=== PATIENT | female | born 1965 | race Caucasian/White ===

== ENCOUNTER 2019-05-10 22:20 | Inpatient (IN) | payer OTHER ==
[2019-05-10] MEDS ORDERED: LORazepam 2 MG/ML SDV IVPUSH ONE (22:41)
[2019-05-10] MEDS ORDERED: Sodium Chloride 0.9% 1,000 ML IV SCH (22:45)
--- NOTE | 2019-05-11 00:10 | EDM.PDOC ---
ED HPI GENERAL MEDICAL PROBLEM - General Chief Complaint: General Stated Complaint: SHAKING, HEAD ACHE, KIDNEY ACHE Time Seen by Provider: 05/10/19 22:30 Source of Information: Reports: Patient, Family History Limitations: Reports: No Limitations - History of Present Illness INITIAL COMMENTS - FREE TEXT/NARRATIVE: This is a 54yo F here for shaking and not feeling well. She has not been feeling well all day. [place]. She does note that she was dehydrated the first day and today she was out in the hot weather for over 12 hours as well. She states she had been drinking coconut water and some gatorade and water. She has shakiness of the arms and body that she cannot control very well. She denies other issues and denies fever or chills. She denies chest pain or shortness of breath. No palpitations or headache. She states she did feel lightheaded after the first day. Onset: Gradual Duration: Day(s): Location: Reports: Generalized ED ROS GENERAL - Review of Systems Review Of Systems: ROS reveals no pertinent complaints other than HPI. ED EXAM, GENERAL - Physical Exam Exam: See Below Exam Limited By: No Limitations General Appearance: Alert, WD/WN, No Apparent Distress Eye Exam: Bilateral Eye: EOMI, PERRL Ears: Normal External Exam Nose: Normal Inspection Throat/Mouth: Normal Inspection Head: Atraumatic, Normocephalic Neck: Normal Inspection Respiratory/Chest: No Respiratory Distress, Lungs Clear, Normal Breath Sounds Cardiovascular: Normal Peripheral Pulses, Regular Rate, Rhythm Peripheral Pulses: 2+: Dorsalis Pedis (L), Dorsalis Pedis (R) GI/Abdominal: Normal Bowel Sounds Back Exam: Normal Inspection Extremities: Normal Inspection Neurological: Alert, Oriented, CN II-XII Intact, Normal Reflexes, Other ( shakiness of the arms and body) Psychiatric: Normal Affect, Normal Mood Skin Exam: Warm, Dry, Intact Course - Orders/Labs/Meds Orders: Active Orders 24 hr Category Date Time Status Patient Status [ADT] Routine ADT 05/11/19 00:01 Ordered EKG Documentation Completion [RC] ASDIRECTED Care 05/10/19 22:40 Active Vital Signs [RC] QSHIFT Care 05/11/19 00:01 Ordered Regular Diet [DIET] Diet 05/11/19 Breakfast Ordered CBC WITH AUTO DIFF [HEME] Routine Lab 05/11/19 10:00 Ordered COMPREHENSIVE METABOLIC PN,CMP [CHEM] Routine Lab 05/11/19 10:00 Ordered CREATINE KINASE,CK [CHEM] Routine Lab 05/11/19 10:00 Ordered PH,VENOUS [BG] Routine Lab 05/11/19 10:00 Ordered Sodium Chloride 0.9% with KCl 20 mEq @ 100 mL/Hr (1000 Med 05/11/19 00:00 Ordered mL) NS + KCl 20mEq/L [Normal Saline with 20 mEq KCl] 1,000 ml IV ASDIRECTED Resuscitation Status Routine Resus Stat 05/11/19 00:01 Ordered Medication Orders Potassium Chloride/Sodium Chloride (Normal Saline With 20 Meq Kcl) 1,000 mls @ 100 mls/hr IV ASDIRECTED RIVAS Labs: Laboratory Tests 05/10/19 05/10/19 05/10/19 Range/Units 22:34 22:34 22:36 WBC 5.6 (4.0-11.0) K/uL RBC 4.10 (3.80-5.80) M/uL Hgb 12.7 (11.5-16.5) g/dL Hct 36.1 L (37.0-47.0) % MCV 88 (76-96) fL MCH 31.0 (27.0-32.0) pg MCHC 35.2 H (31.0-35.0) g/dL RDW 11.5 (11.0-16.0) % Plt Count 364 (150-500) K/uL MPV 8.6 (6.0-10.0) fL Neut % (Auto) 42.6 L (45.0-70.0) % Lymph % (Auto) 44.9 H (20.0-40.0) % Door % (Auto) 10.0 (3.0-10.0) % Eos % (Auto) 2.1 (1.0-5.0) % Baso % (Auto) 0.4 (0.0-0.5) % Neut # (Auto) 2.39 (2.00-7.50) K/uL Lymph # (Auto) 2.52 (1.50-4.00) K/uL Door # (Auto) 0.56 (0.20-0.80) K/uL Eos # (Auto) 0.12 (0.04-0.40) K/uL Baso # (Auto) 0.02 (0.02-0.10) K/uL PT (9.0-11.5) sec INR (1.0-3.5) VBG pH (7.31-7.41) Sodium 124 L (136-145) mmol/L Potassium 3.4 L (3.5-5.1) mmol/L Chloride 86 L* (98-107) mmol/L Carbon Dioxide 23.3 (21.0-32.0) mmol/L Anion Gap 18.1 H (5.0-15.0) mmol/L BUN 11 (8-26) mg/dL Creatinine 0.78 (0.55-1.02) mg/dL Est Cr Clr Drug Dosing TNP Estimated GFR (MDRD) > 60 (>60) MLS/MIN BUN/Creatinine Ratio 14.1 (6-25) Glucose 130 H (74-100) mg/dL Calcium 9.4 (8.5-10.1) mg/dL AST 27 (15-37) U/L ALT 28 (12-78) U/L Creatine Kinase (21-232) U/L 05/10/19 05/10/19 05/10/19 Range/Units 22:37 22:37 22:42 WBC (4.0-11.0) K/uL RBC (3.80-5.80) M/uL Hgb (11.5-16.5) g/dL Hct (37.0-47.0) % MCV (76-96) fL MCH (27.0-32.0) pg MCHC (31.0-35.0) g/dL RDW (11.0-16.0) % Plt Count (150-500) K/uL MPV (6.0-10.0) fL Neut % (Auto) (45.0-70.0) % Lymph % (Auto) (20.0-40.0) % Door % (Auto) (3.0-10.0) % Eos % (Auto) (1.0-5.0) % Baso % (Auto) (0.0-0.5) % Neut # (Auto) (2.00-7.50) K/uL Lymph # (Auto) (1.50-4.00) K/uL Door # (Auto) (0.20-0.80) K/uL Eos # (Auto) (0.04-0.40) K/uL Baso # (Auto) (0.02-0.10) K/uL PT 9.5 (9.0-11.5) sec INR 1.0 (1.0-3.5) VBG pH 7.62 H* (7.31-7.41) Sodium (136-145) mmol/L Potassium (3.5-5.1) mmol/L Chloride (98-107) mmol/L Carbon Dioxide (21.0-32.0) mmol/L Anion Gap (5.0-15.0) mmol/L BUN (8-26) mg/dL Creatinine (0.55-1.02) mg/dL Est Cr Clr Drug Dosing Estimated GFR (MDRD) (>60) MLS/MIN BUN/Creatinine Ratio (6-25) Glucose (74-100) mg/dL Calcium (8.5-10.1) mg/dL AST (15-37) U/L ALT (12-78) U/L Creatine Kinase 236 H (21-232) U/L Meds: Medications Generic Name Dose Route Start Last Admin Trade Name Freq PRN Reason Stop Dose Admin Potassium Chloride/Sodium Chloride 1,000 mls @ 100 mls/hr 05/11/19 00:00 Normal Saline With 20 Meq Kcl IV ASDIRECTED RIVAS Discontinued Medications Generic Name Dose Route Start Last Admin Trade Name Freq PRN Reason Stop Dose Admin Sodium Chloride 1,000 mls @ 999 mls/hr 05/10/19 22:45 05/10/19 22:45 Normal Saline IV 05/11/19 00:00 999 mls/hr ASDIRECTED RIVAS Administration Lorazepam 1 mg 05/10/19 22:41 05/10/19 23:07 Ativan IVPUSH 05/10/19 22:42 1 mg ONETIME ONE Administration Departure - Departure Time of Disposition: 00:15 Disposition: Admitted As Inpatient 68 Condition: Good Clinical Impression: Acute hyponatremia, Hypokalemia, Hypochloremic alkalosis, Occasional tremors, Elevated creatine kinase, Dehydration - Discharge Information - Problem List & Annotations (1) Acute hyponatremia SNOMED Code(s): 1346079 Code(s): E87.1 - HYPO-OSMOLALITY AND HYPONATREMIA Status: Acute (2) Dehydration SNOMED Code(s): 58363534 Code(s): E86.0 - DEHYDRATION Status: Acute (3) Elevated creatine kinase Status: Acute (4) Hypochloremic alkalosis SNOMED Code(s): 74384234 Code(s): E87.3 - ALKALOSIS Status: Acute (5) Hypokalemia SNOMED Code(s): 56917129 Code(s): E87.6 - HYPOKALEMIA Status: Acute (6) Occasional tremors SNOMED Code(s): 16376801 Code(s): R25.1 - TREMOR, UNSPECIFIED Status: Acute - Problem List Review Problem List Initiated/Reviewed/Updated: Yes - My Orders Last 24 Hours: My Active Orders 05/10/19 22:40 EKG Documentation Completion [RC] ASDIRECTED 05/11/19 00:00 Sodium Chloride 0.9% with KCl 20 mEq @ 100 mL/Hr (1000 mL) NS + KCl 20mEq/L [ Normal Saline with 20 mEq KCl] 1,000 ml IV ASDIRECTED 05/11/19 00:01 Patient Status [ADT] Routine Vital Signs [RC] QSHIFT Resuscitation Status Routine 05/11/19 10:00 CBC WITH AUTO DIFF [HEME] Routine COMPREHENSIVE METABOLIC PN,CMP [CHEM] Routine CREATINE KINASE,CK [CHEM] Routine PH,VENOUS [BG] Routine 05/11/19 Breakfast Regular Diet [DIET] - Assessment/Plan Last 24 Hours: My Active Orders 05/10/19 22:40 EKG Documentation Completion [RC] ASDIRECTED 05/11/19 00:00 Sodium Chloride 0.9% with KCl 20 mEq @ 100 mL/Hr (1000 mL) NS + KCl 20mEq/L [ Normal Saline with 20 mEq KCl] 1,000 ml IV ASDIRECTED 05/11/19 00:01 Patient Status [ADT] Routine Vital Signs [RC] QSHIFT Resuscitation Status Routine 05/11/19 10:00 CBC WITH AUTO DIFF [HEME] Routine COMPREHENSIVE METABOLIC PN,CMP [CHEM] Routine CREATINE KINASE,CK [CHEM] Routine PH,VENOUS [BG] Routine 05/11/19 Breakfast Regular Diet [DIET] Plan: Patient to be admitted for management of her hyponatremia, dehydration and possible heat stroke like symptoms. Patient counseled on treatment and labs. AM labs ordered.
[2019-05-11] MEDS: NS + KCl 20mEq/L 1,000 ML IV SCH ×2 (00:15→09:22)
--- NOTE | 2019-05-11 10:49 | PCM.DCSUM1 ---
Discharge Summary - Discharge Data Discharge Date: 05/11/19 Discharge Disposition: Home, Self-Care 01 Condition: Good - Discharge Diagnosis/Problem(s) (1) Acute hyponatremia SNOMED Code(s): 6767778 ICD Code: E87.1 - HYPO-OSMOLALITY AND HYPONATREMIA Status: Acute Priority : High Current Visit: Yes (2) Dehydration SNOMED Code(s): 66787206 ICD Code: E86.0 - DEHYDRATION Status: Acute Priority: High Current Visit: Yes (3) Elevated creatine kinase Status: Acute Current Visit: Yes (4) Hypochloremic alkalosis SNOMED Code(s): 12905850 ICD Code: E87.3 - ALKALOSIS Status: Acute Priority: High Current Visit : Yes (5) Hypokalemia SNOMED Code(s): 90880686 ICD Code: E87.6 - HYPOKALEMIA Status: Acute Priority: Low Current Visit : Yes (6) Occasional tremors SNOMED Code(s): 34997390 ICD Code: R25.1 - TREMOR, UNSPECIFIED Status: Acute Priority: High Current Visit: Yes - Patient Instructions Diet: Usual Diet as Tolerated Activity: As Tolerated Driving: May Drive Today - Discharge Plan Patient Handouts: Rehydration, Adult Forms: ED Department Discharge - Discharge Summary/Plan Comment DC Time >30 min.: No Discharge Summary/Plan Comment: Counseled on prevention of heat stroke. Discussed dehydration and prevention. Discussed moderation of activity in the extreme heat and humidity. Follow up with PCP when she arrives home. Continue supportive care and f/u. Lab results given to patient. Counseled on f/u as needed in the ER. - Patient Data Vitals - Most Recent: Last Vital Signs Temp 36.8 C 05/11/19 08:37 Pulse 56 L 05/11/19 08:37 Resp 16 05/11/19 08:37 BP 117/76 05/11/19 08:37 Pulse Ox 100 05/11/19 08:37 I&O - Last 24 hours: Intake & Output 05/10/19 05/11/19 05/11/19 22:59 06:59 14:59 Intake Total 1854 Balance 1854 Lab Results - Last 24 hrs: Laboratory Results - last 24 hr 05/10/19 05/10/19 05/10/19 Range/Units 22:34 22:34 22:36 WBC 5.6 (4.0-11.0) K/uL RBC 4.10 (3.80-5.80) M/uL Hgb 12.7 (11.5-16.5) g/dL Hct 36.1 L (37.0-47.0) % MCV 88 (76-96) fL MCH 31.0 (27.0-32.0) pg MCHC 35.2 H (31.0-35.0) g/dL RDW 11.5 (11.0-16.0) % Plt Count 364 (150-500) K/uL MPV 8.6 (6.0-10.0) fL Neut % (Auto) 42.6 L (45.0-70.0) % Lymph % (Auto) 44.9 H (20.0-40.0) % [place] % (Auto) 10.0 (3.0-10.0) % Eos % (Auto) 2.1 (1.0-5.0) % Baso % (Auto) 0.4 (0.0-0.5) % Neut # (Auto) 2.39 (2.00-7.50) K/uL Lymph # (Auto) 2.52 (1.50-4.00) K/uL [place] # (Auto) 0.56 (0.20-0.80) K/uL Eos # (Auto) 0.12 (0.04-0.40) K/uL Baso # (Auto) 0.02 (0.02-0.10) K/uL PT (9.0-11.5) sec INR (1.0-3.5) VBG pH (7.31-7.41) Sodium 124 L (136-145) mmol/L Potassium 3.4 L (3.5-5.1) mmol/L Chloride 86 L* (98-107) mmol/L Carbon Dioxide 23.3 (21.0-32.0) mmol/L Anion Gap 18.1 H (5.0-15.0) mmol/L BUN 11 (8-26) mg/dL Creatinine 0.78 (0.55-1.02) mg/dL Est Cr Clr Drug Dosing TNP Estimated GFR (MDRD) > 60 (>60) MLS/MIN BUN/Creatinine Ratio 14.1 (6-25) Glucose 130 H (74-100) mg/dL Calcium 9.4 (8.5-10.1) mg/dL Total Bilirubin (0.0-1.0) mg/dL AST 27 (15-37) U/L ALT 28 (12-78) U/L Alkaline Phosphatase (46-116) U/L Creatine Kinase (21-232) U/L Total Protein (6.4-8.2) g/dL Albumin (3.4-5.0) g/dL Globulin (2.2-4.2) g/dL Albumin/Globulin Ratio (0.8-2.0) 05/10/19 05/10/19 05/10/19 Range/Units 22:37 22:37 22:42 WBC (4.0-11.0) K/uL RBC (3.80-5.80) M/uL Hgb (11.5-16.5) g/dL Hct (37.0-47.0) % MCV (76-96) fL MCH (27.0-32.0) pg MCHC (31.0-35.0) g/dL RDW (11.0-16.0) % Plt Count (150-500) K/uL MPV (6.0-10.0) fL Neut % (Auto) (45.0-70.0) % Lymph % (Auto) (20.0-40.0) % [place] % (Auto) (3.0-10.0) % Eos % (Auto) (1.0-5.0) % Baso % (Auto) (0.0-0.5) % Neut # (Auto) (2.00-7.50) K/uL Lymph # (Auto) (1.50-4.00) K/uL [place] # (Auto) (0.20-0.80) K/uL Eos # (Auto) (0.04-0.40) K/uL Baso # (Auto) (0.02-0.10) K/uL PT 9.5 (9.0-11.5) sec INR 1.0 (1.0-3.5) VBG pH 7.62 H* (7.31-7.41) Sodium (136-145) mmol/L Potassium (3.5-5.1) mmol/L Chloride (98-107) mmol/L Carbon Dioxide (21.0-32.0) mmol/L Anion Gap (5.0-15.0) mmol/L BUN (8-26) mg/dL Creatinine (0.55-1.02) mg/dL Est Cr Clr Drug Dosing Estimated GFR (MDRD) (>60) MLS/MIN BUN/Creatinine Ratio (6-25) Glucose (74-100) mg/dL Calcium (8.5-10.1) mg/dL Total Bilirubin (0.0-1.0) mg/dL AST (15-37) U/L ALT (12-78) U/L Alkaline Phosphatase (46-116) U/L Creatine Kinase 236 H (21-232) U/L Total Protein (6.4-8.2) g/dL Albumin (3.4-5.0) g/dL Globulin (2.2-4.2) g/dL Albumin/Globulin Ratio (0.8-2.0) 05/11/19 05/11/19 05/11/19 Range/Units 10:00 10:00 10:00 WBC 3.5 L D (4.0-11.0) K/uL RBC 4.18 (3.80-5.80) M/uL Hgb 13.1 (11.5-16.5) g/dL Hct 37.8 (37.0-47.0) % MCV 90 (76-96) fL MCH 31.3 (27.0-32.0) pg MCHC 34.7 (31.0-35.0) g/dL RDW 11.8 (11.0-16.0) % Plt Count 346 (150-500) K/uL MPV 8.7 (6.0-10.0) fL Neut % (Auto) 44.3 L (45.0-70.0) % Lymph % (Auto) 37.5 (20.0-40.0) % [place] % (Auto) 14.4 H (3.0-10.0) % Eos % (Auto) 2.9 (1.0-5.0) % Baso % (Auto) 0.9 H (0.0-0.5) % Neut # (Auto) 1.54 L (2.00-7.50) K/uL Lymph # (Auto) 1.30 L (1.50-4.00) K/uL [place] # (Auto) 0.50 (0.20-0.80) K/uL Eos # (Auto) 0.10 (0.04-0.40) K/uL Baso # (Auto) 0.03 (0.02-0.10) K/uL PT (9.0-11.5) sec INR (1.0-3.5) VBG pH 7.37 (7.31-7.41) Sodium 138 (136-145) mmol/L Potassium 4.3 D (3.5-5.1) mmol/L Chloride 102 (98-107) mmol/L Carbon Dioxide 28.7 D (21.0-32.0) mmol/L Anion Gap 11.6 (5.0-15.0) mmol/L BUN 8 D (8-26) mg/dL Creatinine 0.68 (0.55-1.02) mg/dL Est Cr Clr Drug Dosing TNP Estimated GFR (MDRD) > 60 (>60) MLS/MIN BUN/Creatinine Ratio 11.8 (6-25) Glucose 80 D (74-100) mg/dL Calcium 8.7 (8.5-10.1) mg/dL Total Bilirubin 0.5 (0.0-1.0) mg/dL AST 20 (15-37) U/L ALT 27 (12-78) U/L Alkaline Phosphatase 63 (46-116) U/L Creatine Kinase 164 (21-232) U/L Total Protein 6.9 (6.4-8.2) g/dL Albumin 3.7 (3.4-5.0) g/dL Globulin 3.2 (2.2-4.2) g/dL Albumin/Globulin Ratio 1.2 (0.8-2.0) Med Orders - Current: Current Medications Potassium Chloride/Sodium Chloride (Normal Saline With 20 Meq Kcl) 1,000 mls @ 100 mls/hr IV ASDIRECTED RIVAS Last Admin: 05/11/19 09:22 Dose: 100 mls/hr Discontinued Medications Sodium Chloride (Normal Saline) 1,000 mls @ 999 mls/hr IV ASDIRECTED RIVAS Stop: 05/11/19 00:00 Last Admin: 05/10/19 22:45 Dose: 999 mls/hr Lorazepam (Ativan) 1 mg IVPUSH ONETIME ONE Stop: 05/10/19 22:42 Last Admin: 05/10/19 23:07 Dose: 1 mg
== END 2019-05-11 11:00 | disposition home or self-care (01) | DRG 641 ==
LOC: LB.ED 22:20 → LB.MS 05-11 01:00
PROVIDERS: ADMIT Family Medicine; ATTEND Family Medicine
DX: E87.1 Hypo-osmolality and hyponatremia (principal); E86.0 Dehydration; E87.3 Alkalosis; E87.6 Hypokalemia; R25.1 Tremor, unspecified; R74.8 Abnormal levels of other serum enzymes
CPT/HCPCS: 36415; 80048; 80053; 82550; 82800; 84450; 84460; 85025; 85610; 93005; 96361; 96374; 99285-25; J2060; J3480; J7030

== ENCOUNTER 2023-08-15 14:48 | Emergency (ER) | payer MEDICAID ==
[2023-08-15] MEDS ORDERED: Sodium Chloride 0.9% 10 ML Syringe FLUSH PRN (15:11)
[2023-08-15 15:33] LABS: HEMATOCRIT 37.9 % (37.0-47.0); MEAN CORPUSCULAR HGB CONC 34.3 g/dL (31.0-35.0); MEAN PLATELET VOLUME 8.6 fL (6.0-10.0); RED BLOOD CELL COUNT 4.19 M/uL (3.80-5.80); RED CELL DISTRIBUTION WIDTH 12.7 % (11.0-16.0); WHITE BLOOD CELL COUNT,WBC 6.1 K/uL (4.0-11.0)
[2023-08-15 15:54] LABS: A/G RATIO 1.2 (0.8-2.0); ALBUMIN 3.9 g/dL (3.4-5.0); BILIRUBIN TOTAL 0.5 mg/dL (0.0-1.0); BUN/CREATININE RATIO 15.9 (6-25); CALCIUM 9.5 mg/dL (8.5-10.1); CARBON DIOXIDE,CO2 27.9 mmol/L (21.0-32.0); CREATININE 0.69 mg/dL (0.55-1.02); EST CRCL DRUG DOSING (CG) 91.27 mL/min; MAGNESIUM 1.8 mg/dL (1.8-2.4); PHOSPHORUS 3.7 mg/dL (2.5-4.9); POTASSIUM,K 3.9 mmol/L (3.5-5.1); PROTEIN TOTAL,TP 7.2 g/dL (6.4-8.2); TROPONIN I HIGH SENSITIVITY 5.6 pg/ml (<=60.4)
[2023-08-15] MEDS ORDERED: Sodium Chloride 0.9% 1,000 ML IV SCH (16:30)
[2023-08-15] MEDS ORDERED: Lisinopril 5 MG Tab PO ONE (18:05)
== END 2023-08-15 18:38 | disposition home or self-care (01) ==
LOC: LB.ED 14:48
DX: I10 Essential (primary) hypertension (principal); E87.1 Hypo-osmolality and hyponatremia; E87.8 Other disorders of electrolyte and fluid balance, not elsewhere classified; Z87.891 Personal history of nicotine dependence; Z88.8 Allergy status to other drugs, medicaments and biological substances; Z79.899 Other long term (current) drug therapy
CPT/HCPCS: 36415; 71045; 80053; 83735; 84100; 84484; 85027; 85379; 93005; 93010; 96360; 96361; 99283; 99285-25; A9270-GY; J7030

== ENCOUNTER 2023-09-07 12:32 | Emergency (ER) | payer MEDICAID ==
[2023-09-07] MEDS ORDERED: Sodium Chloride 0.9% 10 ML Syringe FLUSH PRN (12:35)
[2023-09-07] MEDS ORDERED: Aspirin 81 MG Tab.Chew PO ONE (12:37)
[2023-09-07 12:53] LABS: HEMATOCRIT 39.2 % (37.0-47.0); HEMOGLOBIN 13.4 g/dL (11.5-16.5); MEAN CORPUSCULAR HEMOGLOBIN 30.6 pg (27.0-32.0); MEAN CORPUSCULAR HGB CONC 34.2 g/dL (31.0-35.0); MEAN PLATELET VOLUME 8.3 fL (6.0-10.0); RED BLOOD CELL COUNT 4.38 M/uL (3.80-5.80); RED CELL DISTRIBUTION WIDTH 12.4 % (11.0-16.0); WHITE BLOOD CELL COUNT,WBC 4.1 K/uL (4.0-11.0)
[2023-09-07 13:13] LABS: A/G RATIO 1.1 (0.8-2.0); ALANINE AMINOTRANSFERASE,ALT 25 U/L (12-78); ALBUMIN 3.9 g/dL (3.4-5.0); ALKALINE PHOSPHATASE 67 U/L (46-116); ANION GAP 16.6 mmol/L (5.0-15.0); ASPARTATE AMNIOTRANSFERASE,AST 20 U/L (15-37); BILIRUBIN TOTAL 0.5 mg/dL (0.0-1.0); BLOOD UREA NITROGEN,BUN 11 mg/dL (8-26); BUN/CREATININE RATIO 12.5 (6-25); CALCIUM 9.5 mg/dL (8.5-10.1); CARBON DIOXIDE,CO2 23.1 mmol/L (21.0-32.0); CHLORIDE,CL 93 mmol/L (98-107); CREATININE 0.88 mg/dL (0.55-1.02); ESTIMATED GFR 77 mL/min (>60); GLUCOSE RANDOM 148 mg/dL (74-100); MAGNESIUM 1.5 mg/dL (1.8-2.4); PHOSPHORUS 1.9 mg/dL (2.5-4.9); POTASSIUM,K 3.7 mmol/L (3.5-5.1); PROTEIN TOTAL,TP 7.6 g/dL (6.4-8.2); SODIUM,NA 129 mmol/L (136-145); TROPONIN I HIGH SENSITIVITY 5.5 pg/ml (<=60.4)
[2023-09-07] MEDS ORDERED: LORazepam 0.5 MG Tab PO ONE (13:13)
[2023-09-07] MEDS ORDERED: Sodium Chloride 0.9% 1,000 ML IV SCH (13:45)
[2023-09-07] MEDS ORDERED: LORazepam 0.5 MG Tab ONE (13:49)
== END 2023-09-07 16:40 | disposition home or self-care (01) ==
LOC: LB.ED 12:32
DX: E87.1 Hypo-osmolality and hyponatremia (principal); E83.42 Hypomagnesemia; E83.39 Other disorders of phosphorus metabolism; Z88.8 Allergy status to other drugs, medicaments and biological substances; Z79.899 Other long term (current) drug therapy
CPT/HCPCS: 36415; 71045; 80053; 83735; 84100; 84484; 85027; 85379; 93005; 93010; 96361; 96365; 99283; 99285-25; A9270-GY; J3475; J7030